=== PATIENT | male | born 1995 | race Caucasian/White ===

== ENCOUNTER 2017-04-17 01:02 | Emergency (ER) | payer BC ==
--- NOTE | 2017-04-20 14:25 | ER ---
DATE SEEN: 04/17/2017 TIME SEEN: The patient was seen at 0120 hours. CHIEF COMPLAINT: Left footdrop. HISTORY OF PRESENT ILLNESS: At 1000 hours, he noticed a decreased dorsal extension of the foot. There was no paresthesia. This gradually progressed and increased throughout the day. His family medical history, paternal aunt and great aunt have multiple sclerosis. The patient drinks excessive amount of alcohol, 15 beers a day 2 times a week during the summer and 15 beers per day while he is at school, at least 3 to 4 days per week. Initially, he told me 5 days a week, but now he tells me 3 to 4 days per week. Yesterday, he had 15 beers and 4 shots. Today, he had 6 beers and 2 to 3 mixes. The patient denies dizziness, lightheadedness, shortness of breath, chest pain, irregular heartbeat, falls, or trauma. He has had a neck injury in the past with discomfort at C6 level. No history of paresis or weakness of upper extremity; loss of biceps, brachioradialis, triceps, or deltoid strength. He notes he is tripping more than usual. There is a left foot drop. It was more notable at 1800 hours this evening and persists. It goes down to the level of his dysesthesia, travels to the lower extremity foot to just below his knee. No unusual physical activity. No sports. He is in [employer] class, in [employer], and also [employer] class at school. He skipped classes today, and he denied that there was any relationship to his alcoholic intake. Initially, he said he was drinking 15 beers 4 times a week. He noted he had a slightly bad back. He has neck problems, and he pointed to C7 level as the discomfort. No diabetes, no serious illnesses, hospitalizations, fractures, injuries, or surgeries. ALLERGIES: No allergies. REVIEW OF SYSTEMS: Otherwise is negative, except for noted of his back. PHYSICAL EXAMINATION: VITAL SIGNS: Blood pressure 166/74, heart rate 90, respirations 16, oxygen saturation 99%, and temperature is 36.8 degrees centigrade. HEENT: PERRLA intact. Pharynx without abnormality. GENERAL: No alcohol or ketones in his breath. NECK: Without tenderness. Range of motion of his neck is normal. No thyromegaly. LUNGS: Clear without rales, rhonchi, or wheezes. HEART: S1, S2. No irregular rate and rhythm. No S3. No S4. ABDOMEN: Soft. No guarding. No abdominal discomfort. No hepatosplenomegaly. MUSCULOSKELETAL: No spinous process tenderness of entire palpable spine. He has mild discomfort at L5 and S1 levels (interspinous ligaments). Straight leg raise is negative. Deep tendon reflexes, knee jerks and ankle jerks 1+. Mild dysesthesia at his knee and progressive anesthesia below lower fourth-fifths of his leg from the knee to the ankle. Sharp pain is absent response. He cannot raise his toes. He has a footdrop when he is walking. NEUROLOGIC: The patient is alert. Cranial nerves otherwise intact. No fasciculation. No clonus. LABORATORY DATA: He has normal CBC. Normal CMP. Urine tox is negative. Blood alcohol is pending. ASSESSMENT: 1. Footdrop, etiology indeterminate, magnified by his excessive alcohol. 2. Alcoholism and alcohol abuse. /[id number] EUGENE/MODL
== END 2017-04-17 02:35 | disposition home or self-care (01) ==
LOC: FB.ED 01:02
DX: M21.372 Foot drop, left foot (principal); F10.20 Alcohol dependence, uncomplicated
CPT/HCPCS: 36415; 80053; 80305; 82607; 82746; 84425; 84443; 85025; 99283; G0480